=== PATIENT | female | born 1980 | race Caucasian/White ===

== ENCOUNTER → 2016-09-01 | Outpatient (REF) | payer OTHER ==
[~2016-09-01] MED LIST: ACET50TA PO; ANUS2.5C2 EXT; COLA50CA3 PO; IBUP600T26 PO; MOM30SS PO; MOTR200T40 PO; TYLE325T5 PO; [UNRECOGNIZED DRUG - OTHER] PO
== END ==
LOC: M LAB REF 16:54
PROVIDERS: ATTEND Advanced Practice Midwife
DX: Z34.83 Encounter for supervision of other normal pregnancy, third trimester (principal)

== ENCOUNTER 2016-10-13 19:03 | Inpatient (IN) | payer OTHER ==
[~2016-10-13 19:03] MED LIST changes: -MOTR200T40 PO; +MOTR200T44 PO
[2016-10-13] MEDS ORDERED: AMPICILLIN SOD 2 GM in D5W MINI-BAG PLUS 100 ML IV STA (19:27)
[2016-10-13 20:10] LABS: MEAN CORPUSCULAR HEMOGLOBIN 32.3 pg (27.0-33.0); MEAN CORPUSCULAR HGB CONC 35.3 g/dl (32.0-36.5); MEAN CORPUSCULAR VOLUME 91.7 fl (80.0-96.0); RED CELL DISTRIBUTION WIDTH 12.3 % (11.5-14.5)
[2016-10-13] MEDS ORDERED: FENTANYL 2MCG/ML ROPIVACAINE 0.2% NACL 250 ML CADD As Ordered ONE (20:21)
[2016-10-13] MEDS ORDERED: OXYTOCIN 30 UNITS IN 0.9% NaCl 500ML IV BAG (J2590) As Ordered ONE (21:19)
[2016-10-13] MEDS ORDERED: OXYTOCIN DRIP 30 UNITS in APPROPRIATE DILUENT 1 EA IV SCH (22:02)
[2016-10-13] MEDS ORDERED: DOCUSATE SODIUM 100 MG CAP PO PRN (22:15)
[2016-10-13] MEDS ORDERED: ANUSOL HC CREAM 30GM TOP PRN (22:15)
[2016-10-13] MEDS ORDERED: RHOGAM 300 MCG (1500 IU) INJ (J2790) IM SCH (22:15)
[2016-10-13] MEDS ORDERED: METHYLERGONOVINE MALEATE 0.2 MG TAB PO PRN (22:15)
[2016-10-13] MEDS ORDERED: DIBUCAINE 1% OINTMENT 30GM TOP PRN (22:15)
[2016-10-13] MEDS ORDERED: MEASLES,MUMPS,RUBELLA VACCINE INJ (MMR-II) (90707) SC SCH (22:15)
[2016-10-13] MEDS ORDERED: MOM 30ML SUSPENSION UDC PO PRN (22:15)
--- NOTE | 2016-10-13 22:22 | HPE ---
DATE OF ADMISSION: 10/13/2016 REASON FOR ADMISSION: Spontaneous rupture of membranes. HISTORY OF PRESENT ILLNESS: Mrs. Joyce is a 36-year-old 3, para 2 presented at 40 weeks 2 days estimated gestational age by first week ultrasound with complaints of leakage of clear fluid. She reports that she had a gush of fluid that occurred approximately an hour before presentation and has had contractions approximately every 20 minutes since. She reports active movement, denies any vascular bleeding. Her course is remarkable for transfer of care at 27 weeks. Otherwise, uncomplicated course. PAST MEDICAL HISTORY: None. PAST SURGICAL HISTORY: None. PAST OBSTETRICAL HISTORY: She is a 3, para 2. She has had one term vaginal delivery as well as a delivery. Both of her vaginal deliveries were complicated by retained placenta requiring manual extractions. She is proven to 6 pounds 2 ounces. MEDICATIONS: Include vitamins. ALLERGIES: No known drug allergies. SOCIAL HISTORY: Denies any alcohol, tobacco or drug use during the . She lives at home with her two daughters and her . PHYSICAL EXAMINATION: Vital signs stable. She is afebrile. She has a category 1 heart tracing with contractions on tocometer. General appearance is well appearing. No acute distress. Abdomen is soft, gravid, nontender. Cervical exam: She is 4 cm dilated, completely effaced, - 2 station, grossly ruptured. LABS: labs: Her blood type is A positive. Her antibody screen in negative. Rubella is immune. RPR is nonreactive. Hepatitis surface antigen is negative. HIV is negative. Hepatitis C is nonreactive. Chlamydia and gonorrhea screens are negative. She had a normal 1 hour glucose of 103, she is GBS positive. ASSESSMENT: 1. This patient is a 36-year-old 3, para 2, at 40 weeks 2 days estimated gestational age with spontaneous rupture of membranes. 2. Reassuring status. 3. GBS positive. PLAN: 1. Admit to labor and delivery. CBC, RPR, type and screen. 2. Antibiotics for GBS prophylaxis. 3. The patient is a good candidate for an epidural. 4. Anticipate spontaneous vaginal delivery.
[2016-10-13] MEDS: IBUPROFEN 800 MG TAB PO PRN (22:39)
[2016-10-13 23:14] VITALS: BP 140/85
[2016-10-13] MEDS: ACETAMINOPHEN 500 MG TAB PO PRN (23:18)
--- NOTE | 2016-10-13 23:19 | DN ---
DATE OF DELIVERY: 10/13/2016 TIME OF : 2125 hours GENDER: Male. APGARS: 9 and 9 WEIGHT: 3240 grams or 7 pounds 2 ounces. ANESTHESIA: None. LACERATIONS: None. COUNTS: 5 laparotomy sponges accounted for prior to and after delivery. DELIVERY NOTE: On the September, at 2125 hours Mrs. Joyce, a 36-year-old 3, now para 3 had a precipitous vaginal delivery of a live born male infant, Apgars 9 and 9, weight 3240 grams or 7 pounds 2 ounces and was delivered right occiput anterior (LETICIA) over an intact perineum, followed by delivery of left anterior shoulder, right posterior shoulder, and corpus. was handed to mother with a good cry. Cord was clamped times two, was cut by the father of the baby under my direction. Cord blood was then obtained. Placenta was drained and delivered grossly intact. A premixed bag with 500 mL of normal saline with 30 units of pitocin was then bolused along with uterine massage until the uterus was firm. Inspection of the cervix and vagina, perineum was grossly intact and hemostatic. Mother and baby were recovering in stable condition.
[2016-10-13] MEDS ORDERED: AMPICILLIN SOD 1 GM in D5W MINI-BAG PLUS 50 ML IV SCH (23:30)
[2016-10-14 05:44] VITALS: BP 138/60
[2016-10-14] MEDS: PRENATAL VITAMIN TAB PO SCH (07:59)
[2016-10-14] MEDS: IBUPROFEN 800 MG TAB PO PRN (07:59)
[2016-10-14] MEDS: ACETAMINOPHEN 500 MG TAB PO PRN (13:56)
[2016-10-14 18:01] VITALS: BP 124/69
[2016-10-15 05:53] VITALS: BP 120/60
[2016-10-15] MEDS: ACETAMINOPHEN 500 MG TAB PO PRN ×2 (06:20→14:27)
[2016-10-15] MEDS: PRENATAL VITAMIN TAB PO SCH (08:00)
[2016-10-15] MEDS ORDERED: ACET50TA PO (14:57)
== END 2016-10-15 15:12 | disposition home or self-care (01) | DRG 775 ==
LOC: M LDO 19:03 → OBSVTOIN 19:19 → INTOOBSV 19:19 → M LDI 19:19 → M OBS 23:12
PROVIDERS: ADMIT Obstetrics & Gynecology; ATTEND Obstetrics & Gynecology
PROC: 10E0XZZ Delivery of Products of Conception, External Approach (ICD-10-PCS; principal; 2016-10-13)
DX: O48.0 Post-term pregnancy (principal); O99.824 Streptococcus B carrier state complicating childbirth; Z3A.40 40 weeks gestation of pregnancy; O62.3 Precipitate labor; Z37.0 Single live birth

== ENCOUNTER 2020-08-28 10:58 | Emergency (ER) | payer OTHER ==
[~2020-08-28] VITALS: Ht 160 cm; Wt 53.5 kg
[~2020-08-28 10:58] MED LIST changes: -ACET50TA PO; +MAPA500T17 PO; +MAPA500T2 PO
[2020-08-28 13:07] LABS: BASO % 0.3 % (0.0-1.0); EOS # 0.1 10^3/uL (0.0-0.5); HEMATOCRIT 41.3 % (36.0-47.0); HEMOGLOBIN 13.9 g/dl (12.0-15.5); LYMPH # 1.4 10^3/uL (1.5-5.0); LYMPH % 20.3 % (24.0-44.0); MEAN CORPUSCULAR HEMOGLOBIN 29.9 pg (27.0-33.0); MEAN CORPUSCULAR HGB CONC 33.7 g/dl (32.0-36.5); MEAN CORPUSCULAR VOLUME 88.8 fl (80.0-96.0); MONO # 0.4 10^3/uL (0.0-0.8); MONO % 5.7 % (0.0-5.0); NEUTROPHILS # 4.9 10^3/uL (1.5-8.5); NEUTROPHILS % 72.4 % (36.0-66.0); PLATELET COUNT, AUTOMATED 161 10^3/uL (150-450); RED BLOOD COUNT 4.65 10^6/uL (4.00-5.40); WHITE BLOOD COUNT 6.8 10^3/uL (4.0-10.0)
[2020-08-28 14:43] LABS: BLOOD UREA NITROGEN 13 MG/DL (7-18); CARBON DIOXIDE LEVEL 29 MEQ/L (21-32); CHLORIDE LEVEL 105 MEQ/L (98-107); CREATININE FOR GFR 0.71 MG/DL (0.55-1.30); GLOMERULAR FILTRATION RATE > 60.0 (>60); GLUCOSE, FASTING 100 MG/DL (70-100); POTASSIUM SERUM 3.9 MEQ/L (3.5-5.1); SODIUM LEVEL 139 MEQ/L (136-145)
--- NOTE | 2020-08-28 14:57 | REP ---
INDICATION: pelvic pain; neg HCG COMPARISON: None. TECHNIQUE: Transabdominal pelvic ultrasound with color Doppler evaluation of the ovaries. FINDINGS: Bladder is unremarkable and measures 8.5 x 8.8 x 8.0 cm. Normal anteverted uterus measures 8.9 x 3.9 x 4.8 cm. The endometrial complex measures 6.3 mm thickness. No discrete uterine or endometrial abnormalities are appreciated. Bilateral ovaries are normal in vascularity without evidence for torsion. Right ovary measures 3.7 x 1.3 x 1.9 cm; R I = 0.60. Left ovary measures 6.8 x 4.4 x 6.9 cm and includes 5.1 x 3.7 x 4.9 cm simple likely physiologic cyst; R I = 0.72. No pelvic fluid or adnexal mass lesion IMPRESSION: Large simple left ovarian cyst likely physiologic. No torsion. Normal uterus and right ovary. <Electronically signed by Kwabena Post > 08/28/20 [id number]
[2020-08-28 15:38] VITALS: BP 111/69
== END 2020-08-28 15:39 | disposition home or self-care (01) ==
LOC: M ED 10:58
DX: N93.8 Other specified abnormal uterine and vaginal bleeding (principal); N83.02 Follicular cyst of left ovary; Z91.018 Allergy to other foods; J30.1 Allergic rhinitis due to pollen

== ENCOUNTER → 2021-03-04 | Outpatient (REF) | payer OTHER | LOC: M LAB REF 12:02 | PROVIDERS: ATTEND Internal Medicine | DX: R21 Rash and other nonspecific skin eruption (principal) ==

== ENCOUNTER → 2021-03-23 | Outpatient (REF) | payer OTHER | LOC: M LAB REF 16:58 | PROVIDERS: ATTEND Internal Medicine | DX: R21 Rash and other nonspecific skin eruption (principal) ==

== ENCOUNTER 2021-04-06 08:52 | Emergency (ER) | payer OTHER ==
[~2021-04-06] VITALS: Ht 160 cm; Wt 46.7 kg
[~2021-04-06 08:52] MED LIST changes: -AMOX500C
[2021-04-06] MEDS ORDERED: AMOX500C (09:18)
--- NOTE | 2021-04-06 10:18 | REP ---
INDICATION: chest tightness an palpitations. COMPARISON: . TECHNIQUE: Upright PA and lateral chest. FINDINGS: The lung wang are clear however, appear hyperinflated.. Cardiac size is normal. The shima, mediastinum and skeletal structures are unremarkable except for pectus excavatum.. IMPRESSION: Hyperinflation, lung wang are otherwise clear. Pectus excavatum. <Electronically signed by Nathanael Moura > 04/06/21 [id number]
[2021-04-06 11:05] LABS: BASO % 0.2 % (0.0-1.0); EOS % 0.7 % (0.0-3.0); HEMATOCRIT 42.8 % (36.0-47.0); HEMOGLOBIN 14.7 g/dl (12.0-15.5); LYMPH # 0.9 10^3/uL (1.5-5.0); LYMPH % 16.2 % (24.0-44.0); MEAN CORPUSCULAR HEMOGLOBIN 30.2 pg (27.0-33.0); MEAN CORPUSCULAR HGB CONC 34.3 g/dl (32.0-36.5); MEAN CORPUSCULAR VOLUME 88.1 fl (80.0-96.0); MONO # 0.4 10^3/uL (0.0-0.8); MONO % 7.2 % (2.0-8.0); NEUTROPHILS # 4.4 10^3/uL (1.5-8.5); NEUTROPHILS % 75.4 % (36.0-66.0); PLATELET COUNT, AUTOMATED 147 10^3/uL (150-450); RED BLOOD COUNT 4.86 10^6/uL (4.00-5.40); WHITE BLOOD COUNT 5.8 10^3/uL (4.0-10.0)
[2021-04-06 11:37] LABS: ALBUMIN 4.6 GM/DL (3.2-5.2); ALT/SGPT 23 U/L (12-78); BILIRUBIN,DIRECT 0.3 MG/DL (0.0-0.2); BILIRUBIN,TOTAL 1.3 MG/DL (0.2-1.0); BLOOD UREA NITROGEN 12 MG/DL (7-18); CALCIUM LEVEL 8.9 MG/DL (8.5-10.1); CARBON DIOXIDE LEVEL 25 MEQ/L (21-32); CHLORIDE LEVEL 108 MEQ/L (98-107); CREATININE FOR GFR 0.75 MG/DL (0.55-1.30); GLOMERULAR FILTRATION RATE > 60.0 (>60); GLUCOSE, FASTING 90 MG/DL (70-100); MAGNESIUM LEVEL 2.4 MG/DL (1.8-2.4); PHOSPHORUS LEVEL 3.4 MG/DL (2.5-4.9); SODIUM LEVEL 140 MEQ/L (136-145); TOTAL PROTEIN 7.3 GM/DL (6.4-8.2)
[2021-04-06 11:41] LABS: CPK CREATINE PHOSPHOKINASE 64 U/L (26-192); FREE T4 1.13 NG/DL (0.76-1.46); MB/CK RELATIVE INDEX 1.56 (< OR =4); TROPONIN I < 0.02 NG/ML (< 0.10)
--- NOTE | 2021-04-06 12:11 | REP ---
INDICATION: palpitations sob. COMPARISON: PA and lateral chest performed earlier today. TECHNIQUE: Chest CT with IV contrast, CT pulmonary artery angiography protocol. FINDINGS: There are no emboli in the pulmonary trunk or central pulmonary arteries. There are no emboli in the pulmonary artery lobe or segment branches on the right or the left. There are no infiltrates. There are no pleural effusions. There are no lung masses or nodules. The thoracic aorta is unremarkable. Cardiac size is normal. However, there is pectus excavatum an the heart is compressed between the sternum and spine. There is no pericardial effusion. The visualized upper abdominal contents are unremarkable. IMPRESSION: There are no pulmonary emboli. There are no infiltrates or pleural effusions. There are no lung masses or nodules. There is pectus excavatum and the heart is compressed between the sternum and spine. <Electronically signed by Nathanael Moura > 04/06/21 [id number]
[2021-04-06 12:30] VITALS: BP 116/69
--- NOTE | 2021-04-06 19:21 | ECGEPIP ---
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
== END 2021-04-06 12:57 | disposition home or self-care (01) ==
LOC: M ED 08:52
DX: R00.2 Palpitations (principal); R06.02 Shortness of breath; A69.20 Lyme disease, unspecified; Q67.6 Pectus excavatum; Z79.2 Long term (current) use of antibiotics; Z91.018 Allergy to other foods

== ENCOUNTER → 2021-04-06 | Outpatient (CLI) | payer OTHER ==
[~2021-04-06] MED LIST changes: +AMOX500C
--- NOTE | 2021-04-09 08:04 | HOLTMON ---
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 There was no diurnal bradycardia less than 40 bpm, no significant pause or AV block. 3 isolated PACs but no PSVT. 88 isolated PVCs with 3 couplets but no ventricular tachycardia. Single diary entry noting "dyspnea, palpitations, and chest pain" did not correlate with any rhythm disturbance; sinus at 66 bpm. The observed rhythm findings would be considered well within normal limits. Electronically Signed on 04-09-2021 8:04:28 EDT by Speedy Simons
== END ==
LOC: M EKG 13:50
PROVIDERS: ATTEND Emergency Medicine
DX: R00.2 Palpitations (principal)

== ENCOUNTER → 2021-04-10 | Outpatient (REF) | payer OTHER ==
[~2021-04-10] MED LIST changes: +AMOX500C
[2021-04-13 23:15] LABS: Lyme Disease IgG Ab 18 kDa Ban Absent (.); Lyme Disease IgG Ab 23 kDa Ban Present (.); Lyme Disease IgG Ab 28 kDa Ban Absent (.); Lyme Disease IgG Ab 30 kDa Ban Absent (.); Lyme Disease IgG Ab 39 kDa Ban Absent (.); Lyme Disease IgG Ab 41 kDa Ban Present (.); Lyme Disease IgG Ab 45 kDa Ban Absent (.); Lyme Disease IgG Ab 58 kDa Ban Present (.); Lyme Disease IgG Ab 66 kDa Ban Absent (.); Lyme Disease IgG Ab 93 kDa Ban Absent (.); Lyme Disease IgG West Blot Int Negative (.); Lyme Disease IgG/IgM Antibodie 1.29 ISR (0.00-0.90); Lyme Disease IgM Ab 23 kDa Ban Present (.); Lyme Disease IgM Ab 39 kDa Ban Absent (.); Lyme Disease IgM Ab 41 kDa Ban Absent (.); Lyme Disease IgM Ab Quantitati 2.99 index (0.00-0.79); Lyme Disease IgM West Blot Int Negative (.)
== END ==
LOC: M LAB REF 16:44
PROVIDERS: ATTEND Internal Medicine
DX: R21 Rash and other nonspecific skin eruption (principal); R53.83 Other fatigue

== ENCOUNTER → 2021-04-20 | Outpatient (CLI) | payer OTHER ==
[~2021-04-20] MED LIST changes: +E-Z-GAS II EFFERVESCENT PACKET (SODIUM BICARB./CITRIC ACID/SIMETHICONE) As Ordered ONE; +E-Z-HD 98% w/w 340GM SUSP BTL As Ordered ONE; +E-Z-PAQUE 96% w/w SUSP 176GM BTL As Ordered ONE
== END ==
LOC: M RAD 10:19
PROVIDERS: ATTEND Internal Medicine
DX: R30.0 Dysuria (principal)

== ENCOUNTER → 2022-12-16 | Outpatient (CLI) | payer OTHER ==
[~2022-12-16] MED LIST changes: -E-Z-GAS II EFFERVESCENT PACKET (SODIUM BICARB./CITRIC ACID/SIMETHICONE) As Ordered ONE; -E-Z-HD 98% w/w 340GM SUSP BTL As Ordered ONE; -E-Z-PAQUE 96% w/w SUSP 176GM BTL As Ordered ONE
== END ==
LOC: M WHC 14:15
PROVIDERS: ATTEND Internal Medicine
DX: R10.2 Pelvic and perineal pain (principal); Z87.42 Personal history of other diseases of the female genital tract

== ENCOUNTER → 2023-02-25 | Outpatient (REF) | payer OTHER ==
[2023-02-25 18:06] LABS: APPEARANCE, URINE CLEAR (CLEAR); BACTERIA, URINE AUTO NEGATIVE (NEGATIVE); BILIRUBIN, URINE AUTO NEGATIVE (NEGATIVE); BLOOD, URINE BLOOD NEGATIVE (NEGATIVE); COLOR, URINE YELLOW (YELLOW); GLUCOSE, URINE (UA) AUTO NEGATIVE (NEGATIVE); KETONE, URINE AUTO NEGATIVE (NEGATIVE); LEUKOCYTE ESTERASE, URINE AUTO NEGATIVE (NEGATIVE); NITRITE, URINE AUTO NEGATIVE (NEGATIVE); PROTEIN, URINE AUTO NEGATIVE (NEGATIVE); RBC, URINE AUTO 0 /HPF (0-3); SPECIFIC GRAVITY URINE AUTO 1.016 (1.002-1.035); SQUAMOUS EPITHELIAL CELL UR AU 0 /HPF (0-6); UROBILINOGEN, URINE AUTO 0.2 mg/dL (0.0-2.0); WBC, URINE AUTO 1 /HPF (0-3)
== END ==
LOC: M SFHCWAGY 12:55
PROVIDERS: ATTEND Specialist
DX: R39.15 Urgency of urination (principal); Z12.4 Encounter for screening for malignant neoplasm of cervix
CPT/HCPCS: 81001; 87624; G0123

== ENCOUNTER → 2023-03-16 | Outpatient (CLI) | payer OTHER | LOC: M WHC 13:03 | PROVIDERS: ATTEND Specialist | DX: Z12.31 Encounter for screening mammogram for malignant neoplasm of breast (principal) ==

== ENCOUNTER → 2023-03-31 | Outpatient (CLI) | payer OTHER | LOC: M WHC 11:32 | PROVIDERS: ATTEND Specialist | DX: R92.2 Inconclusive mammogram (principal) | CPT/HCPCS: 76641; 77065; G0279 ==

== ENCOUNTER → 2024-04-27 | Outpatient (REF) | payer OTHER | LOC: M PLALAB 14:50 | PROVIDERS: ATTEND Specialist | DX: Z01.419 Encounter for gynecological examination (general) (routine) without abnormal findings (principal) ==

== ENCOUNTER → 2024-04-27 | Outpatient (CLI) | payer OTHER | LOC: M WHC 14:11 | PROVIDERS: ATTEND Specialist | DX: Z12.31 Encounter for screening mammogram for malignant neoplasm of breast (principal) ==

== ENCOUNTER 2024-10-04 13:05 | Emergency (ER) | payer OTHER ==
[~2024-10-04] VITALS: Ht 160 cm; Wt 58.7 kg
[2024-10-04 13:54] LABS: BASO % 0.2 % (0.0-1.0); EOS # 0.1 10^3/uL (0.0-0.5); EOS % 1.1 % (0.0-3.0); HEMATOCRIT 38.9 % (36.0-47.0); HEMOGLOBIN 13.6 g/dl (12.0-15.5); LYMPH % 21.2 % (24.0-44.0); MEAN CORPUSCULAR HEMOGLOBIN 30.3 pg (27.0-33.0); MEAN CORPUSCULAR VOLUME 86.6 fl (80.0-96.0); MONO # 0.3 10^3/uL (0.0-0.8); NEUTROPHILS # 3.2 10^3/uL (1.5-8.5); NEUTROPHILS % 70.3 % (36.0-66.0); PLATELET COUNT, AUTOMATED 150 10^3/uL (150-450); RED BLOOD COUNT 4.49 10^6/uL (4.00-5.40); WHITE BLOOD COUNT 4.6 10^3/uL (4.0-10.0)
[2024-10-04 14:20] LABS: CK-MB VALUE MASS < 1.0 NG/ML (<3.6); LIPASE 30 U/L (12-53)
[2024-10-04 14:21] LABS: INR 1.03; PROTHROMBIN TIME 13.8 SECONDS (12.5-14.5)
[2024-10-04 14:22] LABS: ALBUMIN 4.2 G/DL (3.2-5.2); ALKALINE PHOSPHATASE 44 U/L (35-104); ALT/SGPT 17 U/L (7.0-40); AST/SGOT 16 U/L (<34); BILIRUBIN,DIRECT 0.3 MG/DL (<0.4); BLOOD UREA NITROGEN 17 MG/DL (9-23); CALCIUM LEVEL 8.9 MG/DL (8.5-10.1); CARBON DIOXIDE LEVEL 24 MMOL/L (20-31); CHLORIDE LEVEL 106 MMOL/L (98-107); CPK CREATINE PHOSPHOKINASE 88 U/L (34-145); CREATININE FOR GFR 0.73 MG/DL (0.55-1.30); GLOMERULAR FILTRATION RATE > 60.0 (>58); GLUCOSE, FASTING 89 MG/DL (60-100); MB/CK RELATIVE INDEX 1.13 (< OR =4); POTASSIUM SERUM 3.9 MMOL/L (3.5-5.1); SODIUM LEVEL 141 MMOL/L (136-145)
[2024-10-04] MEDS ORDERED: ISOVUE-370 76% 100ML VIAL As Ordered ONE (18:03)
[2024-10-04 18:31] LABS: FREE T4 1.25 NG/DL (0.89-1.76); THYROID STIMULATING HORMONE 3.701 uIU/ML (0.55-4.78)
[2024-10-04 20:45] VITALS: BP 109/56; TEMP 98.1; O2SAT 98
== END 2024-10-04 20:48 | disposition home or self-care (01) ==
LOC: M ED 13:05
DX: R07.89 Other chest pain (principal); F41.1 Generalized anxiety disorder; Q67.6 Pectus excavatum; F10.10 Alcohol abuse, uncomplicated; Z91.018 Allergy to other foods
CPT/HCPCS: 36415; 71045; 71275; 80048; 80076; 82550; 82553; 83690; 84439; 84443; 84484; 84702; 85025; 85610; 93005; 99284; Q9967

== ENCOUNTER → 2025-03-27 | Outpatient (CLI) | payer OTHER ==
[2025-03-27 18:29] LABS: BASO # 0.0 10^3/uL (0.0-0.2); BASO % 0.2 % (0.0-1.0); EOS # 0.1 10^3/uL (0.0-0.5); EOS % 1.0 % (0.0-3.0); LYMPH # 0.9 10^3/uL (1.5-5.0); LYMPH % 17.1 % (24.0-44.0); MONO # 0.3 10^3/uL (0.0-0.8); MONO % 6.6 % (2.0-8.0); NEUTROPHILS # 3.9 10^3/uL (1.5-8.5); NEUTROPHILS % 74.9 % (36.0-66.0); PLATELET COUNT, AUTOMATED 158 10^3/uL (150-450)
[2025-03-27 18:35] LABS: ERYTHROCYTE SEDIMENTATION RATE 5 mm/hr (0-20)
[2025-03-27 19:08] LABS: THYROXINE (T4) 7.3 UG/DL (4.5-10.9)
[2025-03-27 19:09] LABS: ALT/SGPT 20 U/L (7.0-40); AST/SGOT 23 U/L (<34); CALCIUM LEVEL 8.7 MG/DL (8.5-10.1); CARBON DIOXIDE LEVEL 25 MMOL/L (20-31); CHLORIDE LEVEL 105 MMOL/L (98-107); CREATININE FOR GFR 0.82 MG/DL (0.55-1.30); GLOMERULAR FILTRATION RATE > 90.0 (>58); POTASSIUM SERUM 4.0 MMOL/L (3.5-5.1); SODIUM LEVEL 143 MMOL/L (136-145)
[2025-03-27 19:10] LABS: VITAMIN B12 LEVEL 591 PG/ML (211-911)
[2025-03-27 19:25] LABS: RHEUMATOID FACTOR QUANT < 3.5 IU/ML (<14)
[2025-03-27 19:28] LABS: CPK CREATINE PHOSPHOKINASE 134 U/L (34-145); T UPTAKE 37.0 % (22.5-37.0)
== END ==
LOC: M PLALAB 14:41
PROVIDERS: ATTEND Psychiatry & Neurology Neurology
DX: A69.20 Lyme disease, unspecified (principal); E07.9 Disorder of thyroid, unspecified; E53.8 Deficiency of other specified B group vitamins; M79.10 Myalgia, unspecified site; M32.9 Systemic lupus erythematosus, unspecified